=== PATIENT | female | born 1995 | race Caucasian/White ===

== ENCOUNTER 2020-07-22 23:21 | Emergency (ER) | payer OTHER, SELFPAY ==
[2020-07-22 23:23] VITALS: BP 147/75; PULSE 80; RESP 16; TEMP 36.1; O2SAT 100
[2020-07-22 23:44] LABS: Add Urine Microscopic? NO; Appearance Urine Clear (Clear); Bilirubin Urine Negative (Negative); Blood Urine Negative (Negative); Color Urine Colorless (Yellow); Glucose Urine UA Negative (Negative); Ketones Urine Negative (Negative); Leukocyte Esterase Ur Negative LEU/UL (Negative); Nitrate Urine Negative (Negative); Protein Urine Negative (Negative); Urobilinogen Urine Negative mg/dL (<2.0)
[2020-07-23 00:03] LABS: Basophils Percent Auto 0.2 % (0.2-1.2); Eosinophils Absolute Auto 0.3 K/mm3 (0-0.3); Eosinophils Percent Auto 4.4 % (0-4.4); Hematocrit 38.4 % (37.0-47.0); Hemoglobin 12.9 g/dL (12.0-15.0); Immature Granulocyte Absolute 0.01 K/mm3 (0.00-0.031); Immature Granulocyte Percent A 0.2 % (0-0.5); Lymphocytes Absolute Auto 2.38 K/mm3 (0.9-3.2); Lymphocytes Percent Auto 37.4 % (18.3-44.2); Mean Corpuscular HGB Conc 33.6 g/dl (32-36); Mean Corpuscular Hemoglobin 30.2 pg (26-34); Mean Corpuscular Volume 89.9 fl (80-100); Mean Platelet Volume 9.1 fl (7.4-10.4); Monocytes Absolute Auto 0.5 K/mm3 (0.1-0.6); Neutrophils Absolute Auto 3.2 K/mm3 (1.3-6.7); Neutrophils Percent Auto 49.8 % (45.5-73.1); Platelet Count Result 312 k/mm3 (150-375); Red Blood Count 4.27 M/mm3 (4.2-5.4); Red Cell Distribution Width 11.9 % (11.5-14.5); White Blood Count 6.4 K/mm3 (4.5-10.0)
[2020-07-23] MEDS: KETOROLAC (*BKC) 60 MG/2 ML VIAL IM (00:15)
[2020-07-23 00:18] LABS: Alanine Aminotransferase 15 U/L (4-35); Albumin Level 4.1 g/dL (3.5-5.1); Alkaline Phosphatase 39 U/L (38-126); Anion Gap 7 mmol/L (8-16); Aspartate Amino Transferase 25 U/L (14-36); Bilirubin,Total 0.3 mg/dL (0.2-1.3); Blood Urea Nitrogen 13 mg/dL (7-17); Carbon Dioxide 27 mmol/L (22-30); Chloride 104 mmol/L (98-107); Estimated CRCL calculation 100 ml/min; Estimated Glomerular Filt Rate > 60; Glucose 100 mg/dL (65-105); Lipase 121 U/L (23-300); Potassium 3.9 mmol/L (3.4-5.0); Sodium 138 mmol/L (137-145)
--- NOTE | 2020-07-23 00:38 | ED.GENADULT ---
HPI - General Adult General Chief complaint: Urogenital-Female Stated complaint: bilateral flank pain Time Seen by Provider: 07/22/20 23:35 History of Present Illness HPI narrative: Patient is a 25-year-old female who presents ER with flank pain bilaterally. Began earlier in the day and is persisted despite taking ibuprofen. Worse with sitting forward and twisting. Occasionally will radiate to her lower back. Does not seem to radiate out into her abdomen. No nausea or vomiting or sweats. No urinary symptoms. No known injury. Reports pain is sharp when she moves and feels like an achy/burning pain when she is at rest. Related Data Allergies Allergy/AdvReac Type Severity Reaction Status Date / Time cefaclor Allergy Unknown Verified 07/22/20 23:26 Review of Systems Review of Systems: All systems reviewed & are unremarkable except as noted in HPI and below Constitutional: Constitutional: Denies chills, Denies fever(s) and Denies weakness Cardiovascular: Cardiovascular: Denies chest pain and Denies radiating jaw, neck or arm pain Genitourinary: Genitourinary: Denies nocturia, Denies dysuria and Reports flank pain Musculoskeletal: Musculoskeletal: Reports back pain and Denies muscle cramps Neurologic: Denies focal weakness and Denies numbness PMFSH Past Medical History Medical History (Updated 07/23/20 @ 01:20 by Dwight Polanco MD) Healthy female adult Surgical History Surgical History (Updated 07/23/20 @ 00:42 by Dwight Polanco MD) No history of previous surgery Social History Social History (Updated 07/23/20 @ 00:42 by Dwight Polanco MD) Smoking status: Never smoker Exam Narrative: Exam Narrative: GENERAL: Well-appearing, well-nourished, and in no acute distress. HEAD: Normocephalic, atraumatic. CHEST: Clear to auscultation. No respiratory distress. HEART: Regular rate and rhythm. Normal peripheral pulses. ABDOMEN: Soft, nontender, nondistended. Back: No midline tenderness of thoracic or lumbar spine. No reproducible paraspinal muscular tenderness of the back. No rash or evidence of trauma. EXTREMITIES: Normal range of motion. No edema. SKIN: Warm, dry, no rash. NEURO: Alert and oriented x3. Course Course Emergency Course: Patient informed of results. Back pain improving with Toradol. Increasing pain with movement suggest musculoskeletal cause for discomfort. No midline tenderness or trauma so no x-ray indicated at this time. Will treat with anti-inflammatories muscle relaxers. Vital Signs Vital signs: Vital Signs Temperature 96.9 F L 07/22/20 23:23 Pulse Rate 80 07/22/20 23:23 Respiratory Rate 16 07/22/20 23:23 Blood Pressure 147/75 H 07/22/20 23:23 Pulse Oximetry 100 07/22/20 23:23 Temperature 96.9 F L 07/22/20 23:23 Pulse Rate 80 07/22/20 23:23 Respiratory Rate 16 07/22/20 23:23 Blood Pressure 147/75 H 07/22/20 23:23 Pulse Oximetry 100 07/22/20 23:23 Medical Decision Making Vital Signs Vital Signs: Vital Signs Temperature 96.9 F L 07/22/20 23:23 Pulse Rate 80 07/22/20 23:23 Respiratory Rate 16 07/22/20 23:23 Blood Pressure 147/75 H 07/22/20 23:23 Pulse Oximetry 100 07/22/20 23:23 Temperature 96.9 F L 07/22/20 23:23 Pulse Rate 80 07/22/20 23:23 Respiratory Rate 16 07/22/20 23:23 Blood Pressure 147/75 H 07/22/20 23:23 Pulse Oximetry 100 07/22/20 23:23 Lab Data Result diagrams: 07/22/20 23:57 07/22/20 23:57 Labs: Lab Results 07/22/20 07/22/20 07/22/20 Range/Units 23:38 23:57 23:57 WBC 6.4 (4.5-10.0) K/mm3 RBC 4.27 (4.2-5.4) M/mm3 Hgb 12.9 (12.0-15.0) g/dL Hct 38.4 (37.0-47.0) % MCV 89.9 (80-100) fl MCH 30.2 (26-34) pg MCHC 33.6 (32-36) g/dl RDW 11.9 (11.5-14.5) % Plt Count 312 (150-375) k/mm3 MPV 9.1 (7.4-10.4) fl Immature Gran % (Auto) 0.2 (0-0.5) % Neut % (Auto) 49.8 (45.5-73.1) % Lymph % (Aut
[2020-07-23 01:28] VITALS: BP 128/79; PULSE 74; RESP 18; O2SAT 99
== END 2020-07-23 01:30 | disposition home or self-care (01) ==
PROVIDERS: Emergency Provider Emergency Medicine
DX: M54.9 Dorsalgia, unspecified (principal)
CPT/HCPCS: 36415; 80048; 80076; 81003; 83690; 85025; 96372; 99283; J1885